=== PATIENT | male | born 1940 | race Caucasian/White ===

== ENCOUNTER 2017-11-28 11:13 | Outpatient (CLI) | payer MEDICARE, BC ==
[~2017-11-28] VITALS: Ht 198.1 cm; Wt 126.1 kg
--- NOTE | ~2017-11-28 | HEMODYNAMI ---
PATIENT:ANSON NEWMAN MEDICAL RECORD: [id number] : 44 LOCATION:[facility] ADMISSION DATE: 11/28/17 Generatedon:11/28/201713:52 Patient name: ANSON NEWMAN Patient #: [id number] SSN: : 1940 Date of study: 11/28/2017 Page: Of Hemodynamic Procedure Report Patient Data Patient Demographics Procedure consent was obtained First Name: ANSON Gender: Male Last Name: PATY : 1940 Middle Initial: J Age: 76 year(s) Patient #: [id number] Race: Unknown Additional ID: [id number] Contact details Address: [address] [place] [address] ROAD State: [place] City: [facility] Zip code: [address] Past Medical History Allergies: No known allergies Admission Admission Data Admission Date: 11/28/2017 Admission Time: 11:13 Height (in.): 6.6 BSA: 0.43 (m2) Height (cm.): 16.76 BMI: 4470.85 (kg/m2) Weight (lbs.): 277 Weight (kg.): 125.65 Lab Results Lab Result Date: 11/28/2017 Lab Result Time: 0:00 Biochemistry Name Units Result Min Max BUN mg/dl 20 --(----)*- 7 18 Creatinine mg/dl 1.3 --(---*)-- 0.6 1.3 CBC Name Units Result Min Max Hemoglobin g/dl 13.9 --(*---)-- 13.5 17.5 Procedure Procedure Types Cath Procedure Diagnostic Procedure Cardioversion External Procedure Description Procedure Date Procedure Date: 11/28/2017 Procedure Start Time: 13:40 Procedure End Time: 13:52 Procedure Staff Name Function Landry José MD Performing Physician Erika Kearney RT Monitor Alfredo Dixon RN Nurse Dione Melendez CRNA Additional personnel Danny Lobo RT [employer] Drafter Procedure Data Procedure Complications No complications Procedure Medications Medication Administration Route Dosage Oxygen NC 2 l/min Refer to Anesthesia Notes for Sedation Medications Hemodynamics Rest BSA: 0.43 (m2) HGB: 13.9 (g/dl) O2 Consumption: Estimated: 48.18 (ml/min) O2 Consumption indexed: Estimated:112.05 (ml/min/m) Heart Rate: 62 (bpm) Snapshots Pre Cath Intra NCS Post Cath Vital Signs Time Heart Resp SPO2 etCO2 NIBP Rhythm Pain Sedation Rate (ipm) (%) (mmHg) (mmHg) Status Level (bpm) 13:39:28 93 21 98 17 134/82(97) NSR 0 (11) 10(A) , No pain 13:44:28 60 18 98 22.2 Measuring NSR 0 (11) 9(A) , No pain 13:45:12 74 15 98 10.4 111/75(87) NSR 0 (11) 9(A) , No pain 13:49:59 55 14 94 26.7 122/74(96) NSR 0 (11) 10(A) , No pain Medications Time Medication Route Dose Verified Delivered Reason Notes Effectiven ess by by 13:39:54 Oxygen NC 2 Landryraquel Fuentes used for l/min Arnav Dixon drivers license examiner 13:39:58 Refer to Landryraquel Fuentes Anesthesia Arnav Dixon RN Notes for Sedation Medications Procedure Log Time Note 13:27:35 Danny Lobo RT(R) sent for patient. Start room use. 13:27:37 Time tracking: Regular hours 13:27:40 Plan of Care:Hemodynamics will remain stable., Cardiac rhythm will remain stable., Comfort level will be maintained., Respiratory function will remain adequate., Patient/ family verbilizes understanding of procedure., Procedure tolerated without complication., Recovers from procedure without complications.. 13:27:42 Signed procedure consent form obtained from patient. 13:28:45 Patient allergic to No known allergies 13:28:57 Patient Height : 6.6 inches 13:28:59 Patient Weight : 277 lbs 13:31:24 Lab Result : Creatinine 1.3 mg/dl 13:31:24 Lab Result : BUN 20 mg/dl 13:31:24 Lab Result : Hemoglobin 13.9 g/dl 13:34:03 Patient received from Pre/Post Procedure Room to [facility] 1 Alert and oriented. Tansferred to table in Supine position. 13:34:04 Warm blankets applied, and rosa hugger turned on for patient comfort. 13:34:05 Correct patient and procedure confirmed by team. 13:34:07 ECG and BP/O2 sat monitors applied to patient. 13:38:40 Vital chart was started 13:38:46 Baseline sample Acquired. 13:38:52 Baseline sample Acquired. 13:38:58 Rhythm: atrial fibrillation 13:39:02 Baseline sample Acquired. 13:39:04 Full Disclosure recording started 13:39:14 H&P Date Dictated: 11/20/2017 Within 30 days and on chart., H&P Addendum completed by physician on day of procedure. (MUST COMPLETE FOR ALL OUTPATIENTS). 13:39:15 Pre-procedure instructions explained to patient. 13:39:16 Pre-op teaching completed and patient verbalized understanding. 13:39:17 Family in patients room. 13:39:19 Patient NPO since Midnight. 13:39:21 Is the patient allergic to Iodine/contrast media? No. 13:39:23 Is patient on blood thinner?Yes 13:39:28 ACC The patient was administered the following blood thiners within the last 24 hours: Eliquis 13:39:31 Patient diabetic? Yes. 13:39:32 If diabetic: On Metformin? No 13:39:40 Previous problem with sedation/anesthesia? No ? 13:39:42 Snore? Yes 13:39:42 Sleep apnea? No 13:39:43 Deviated septum? No 13:39:44 Opens mouth fully? Yes 13:39:45 Sticks out tongue? Yes 13:39:48 Airway obstruction? Yes copd 13:39:51 Dentures? Yes in 13:39:54 Oxygen 2 l/min NC was administered by Alfredo Dixon RN; used for procedure; 13:39:58 Refer to Anesthesia Notes for Sedation Medications was administered by Alfreod Dixon RN; ; 13:40:05 IV patent on arrival in left hand with 0.9% NaCl at [facility]. 13:40:08 Alarms reviewed by Chidi N. 13:40:08 Sharps counted by scrub and verified by RMarilyNMarily 13:40:09 --------ALL STOP TIME OUT------ 13:40:10 Final Timeout: patient, procedure, and site verified with staff and physician. All members of the team are in agreement. 13:40:13 Physical assessment completed. ASA score P 2 - A patient with mild systemic disease as per Landry José MD. 13:40:16 Sedation plan: TIVA Medication:Propofol 13:40:18 Dione Melendez CRNA present and monitoring patient for TIVA. 13:40:25 Quick Combo opened to sterile field. 13:40:31 Procedure started. 13:40:32 Quick combo pads placed on patients chest and back. 13:44:31 Defibrillator synced and charged to 200 Joules. 13:44:35 Shock delivered. 13:44:49 Patient cardioverted to sinus rhythm . 13:45:00 Procedure ended.(Physican Out) 13:47:53 Post-procedure physical assessment completed. ASA score P 2 - A patient with mild systemic disease as per Landry José MD. 13:47:57 Post procedure rhythm: sinus rhythm 13:48:00 Post procedure instruction explained to patient.Patient verbalizes understanding. 13:48:00 Patient needs reinforcement of post procedure teaching. 13:48:19 Procedure and supply charges have been captured, reviewed, submitted and are correct. 13:48:25 Procedure Complication : No complications 13:51:55 Vital chart was stopped 13:51:56 See physician's report for complete and final results. 13:51:58 Report given to Pre/Post Procedure Room. 13:52:01 Patient transfered to Pre/Post Procedure Room with Bed. 13:52:03 Procedure ended. 13:52:03 Full Disclosure recording stopped 13:52:07 End room use (Document Last) Device Usage Item Manufacture Quantity Catalog Hospital Part Current Minimal Lot# / Name Number Charge Number Stock [facility] Keira ca# Code [employer] 1 [id number] Combo Signature Audit [place] Stage Time Signature Unsigned Intra-Procedure 11/28/2017 Erika Kearney 1:52:25 PM RT(R) Signatures Monitor : Erika Kearney Signature : RT Date : Time : [id number] [place] [address]
[~2017-11-28 11:13] MED LIST: GLUCOTROL 5 MG T5 MG; MAXZIDE-25 MG T1 TAB PO; PRAVACHOL40 MG PO; PRILOSEC20 MG PO; TARKA 4/2401 BOTTLE PO; ZIAC 5/6.25 MG1 TAB PO
[2017-11-28] MEDS ORDERED: GLUCOTROL XL 5 M5 MG PO (11:52)
[2017-11-28] MEDS ORDERED: BETAPACE 120 M120 MG PO (11:53)
[2017-11-28] MEDS ORDERED: ELIQUIS5 MG PO (11:53)
[2017-11-28] MEDS ORDERED: FUROSEMIDE20 MG PO (11:53)
[2017-11-28] MEDS ORDERED: CARDURA2 MG PO (11:54)
[2017-11-28] MEDS ORDERED: PEPCID AC20 MG PO (11:54)
[2017-11-28] MEDS ORDERED: ZIAC 5-6.25 MG1 TAB PO (11:54)
[2017-11-28] MEDS ORDERED: TARKA 4-240 MG1 EACH PO (11:55)
[2017-11-28] MEDS ORDERED: PROSCAR5 MG PO (11:55)
[2017-11-28 12:02] VITALS: BP 149/95; Ht 198.1 cm; Wt 126.1 kg
[2017-11-28 12:12] LABS: HEMATOCRIT 40.5 % (42.0-54.0); HEMOGLOBIN 13.9 g/dL (13.5-17.5); MCH 32.1 pg (26.0-34.0); MCHC 34.3 g/dL (31.0-37.0); MCV 93.5 fL (80.0-100.0); MEAN PLATELET VOLUME 10.1 fL (7.4-10.4); PLATELET COUNT 169 10x3/uL (130-400); RBC 4.33 10x6/uL (4.20-6.10); WBC 35.4 10x3/uL (4.8-10.8)
[2017-11-28 12:17] LABS: INR 1.42 (0.85-1.17); PROTIME 16.9 SECONDS (11.6-15.0)
[2017-11-28 12:25] LABS: ANION GAP 12.4 mmol/L (8-16); CALCIUM 8.6 mg/dL (8.5-10.1); CARBON DIOXIDE 24.1 mmol/L (21.0-32.0); CREATININE - SERUM 1.3 mg/dL (0.6-1.3); POTASSIUM - SERUM 4.5 mmol/L (3.5-5.1)
[2017-11-28 12:34] LABS: BASOPHILS 1 % (0-2); LYMPHOCYTES 92 % (15-50); MONOCYTES 1 % (2-11); NEUTROPHILS 6 % (40-80); PLATELET ESTIMATE NORMAL; SMUDGE CELLS 1+
== END 2017-11-28 15:15 | disposition home or self-care (01) ==
LOC: D.CATH 11:13
PROVIDERS: Internal Medicine Cardiovascular Disease
DX: I48.91 Unspecified atrial fibrillation (principal); I25.10 Atherosclerotic heart disease of native coronary artery without angina pectoris; I10 Essential (primary) hypertension; E11.9 Type 2 diabetes mellitus without complications; K21.9 Gastro-esophageal reflux disease without esophagitis; J44.9 Chronic obstructive pulmonary disease, unspecified; Z87.891 Personal history of nicotine dependence; Z01.812 Encounter for preprocedural laboratory examination

== ENCOUNTER → 2019-09-17 10:00 | Outpatient (CLI) | payer MEDICARE, BC ==
[2017-11-28 12:02] VITALS: BMI 32.1
[~2019-09-17 10:00] MED LIST changes: +BETAPACE 120 M120 MG PO; +CARDURA2 MG PO; +ELIQUIS5 MG PO; +FUROSEMIDE20 MG PO; +GLUCOTROL XL 5 M5 MG PO; +PEPCID AC20 MG PO; +PROSCAR5 MG PO; +TARKA 4-240 MG1 EACH PO; +ZIAC 5-6.25 MG1 TAB PO
== END | disposition home or self-care (01) ==
LOC: D.HCCECHO 10:00
PROVIDERS: ATTEND Internal Medicine Cardiovascular Disease
DX: I20.9 Angina pectoris, unspecified (principal); I10 Essential (primary) hypertension